=== PATIENT | male | born 1950 | race Caucasian/White ===

== ENCOUNTER 2018-05-13 08:38 | Emergency (ER) | payer MEDICARE, BC ==
[2018-05-13 08:52] VITALS: BP 181/93
--- NOTE | 2018-05-13 10:25 | UC ---
Shoulder Pain HPI - HPI Summary HPI Summary: 67 y/o male presents to the urgent care c/o Rt shoulder pain s/p falling on ice about 6 days ago. pt reports he has been able to move his shoulder, however pain is worse at night time when he is sleeping on his RT shoulder. Pain is 6/ 10 w/o any radiation, bruising or swelling. At rest pain is better 2/10. He has been taking Ibuprofen PO 400mg to alleviate symptoms w/o any improvement. Pt denies numbness or tingling sensation over the RT extremity, SOB, chest pain , SHIN, dizziness, abdominal pain, N/v/D. He states his BP is probably very elevated since he couldn't sleep well last night. - History of Current Complaint Chief Complaint: UCUpperExtremity Stated Complaint: SHOULDER INJURY Time Seen by Provider: 05/13/18 09:16 Hx Obtained From: Patient Onset/Duration: Sudden Onset, Lasting Days - 6 days, Still Present, Worse Since - 2 days Timing: Constant Severity Initially: Mild Severity Currently: Moderate Location Of Pain: Is Discrete @ - RT shoulder Pain Intensity: 6 Pain Scale Used: 0-10 Numeric Character: Sharp Aggravating Factor(s): Movement, External Rotation, Abduction Alleviating Factor(s): Rest, OTC Meds - Ibuprofen 400mg PO Associated Signs And Symptoms: Positive: Negative. Negative: Swelling, Redness , Fever, Weakness, Numbness/Tingling Related History: Dominant Hand Right - Risk Factors Non-Orthopedic Risk Factor: Negative DVT Risk Factors: Negative Septic Arthritis Risk Factor: Negative - Allergies/Home Medications Allergies/Adverse Reactions: Allergies Allergy/AdvReac Type Severity Reaction Status Date / Time No Known Allergies Allergy Verified 05/13/18 08:53 Home Medications: Home Medications Lisdexamfetamine Dimesylate [Vyvanse] 40 mg PO DAILY WITH MEAL 05/13/18 [ History Confirmed 05/13/18] PMH/Surg Hx/FS Hx/Imm Hx Previously Healthy: Yes Endocrine History: Diabetes Cardiovascular History: Hypertension Other History Of: Negative For: HIV, Hepatitis B, Hepatitis C, Anticoagulant Therapy - Surgical History Surgical History: Yes Surgery Procedure, Year, and Place: tonsilectomy, umbilical cyst - Family History Known Family History: Positive: Cardiac Disease, Hypertension Negative: Renal Disease - Social History Occupation: Employed Full-time Lives: With Family Alcohol Use: Rare Substance Use Type: None Smoking Status (MU): Never Smoked Tobacco Review of Systems All Other Systems Reviewed And Are Negative: Yes Constitutional: Positive: Negative Skin: Positive: Negative Eyes: Positive: Negative ENT: Positive: Negative Respiratory: Positive: Negative Cardiovascular: Positive: Negative Gastrointestinal: Positive: Negative Genitourinary: Positive: Negative Motor: Positive: Negative Neurovascular: Positive: Negative Musculoskeletal: Positive: Decreased ROM - RT shoulder, Other: - RT shoulder pain s/p fall Neurological: Positive: Negative Psychological: Positive: Negative Is Patient Immunocompromised?: No Physical Exam - Summary Physical Exam Summary: Vital Signs Reviewed: Yes GENERAL: Well-Appearing, No Pain Distress, Well-Nourished male w/o any apparent pain distress Eyes: Positive: Conjunctiva Clear - PERRL,EOMI ENT: Positive: Normal ENT inspection, Hearing grossly normal, Pharyngeal erythema - mild, Nasal drainage - clear, Uvula midline Neck: Positive: Supple, Nontender, No Lymphadenopathy Respiratory: Positive: Chest non-tender, Lungs clear, Normal breath sounds, No respiratory distress Cardiovascular: Positive: RRR, No Murmur, Pulses Normal, Brisk Capillary Refill Abdomen Description: Positive: Nontender, No Organomegaly, Soft. Negative: CVA Tenderness (R), CVA Tenderness (L) Bowel Sounds: Positive: Present Musculoskeletal: RT shoulder: The Rt shoulder is with/without obvious asymmetry or deformity when compared to the L shoulder. posterior shoulder w/ ecchymosis and bruising, no crepitus. No bony deformity or prominence of humeral head. No erythema, warmth. No Point Tenderness to palpation over the clavicle, or scapula. positive tenderness over Acromioclavicular joint and humeral head with mild swelling, NT to palpation of the bicipital groove . NT to palpation of the muscles of the sternocleidomastoid, pectoralis, biceps/triceps , deltoid, trapezius, . Limited ROM due to pain especially in adduction and abduction.on both passive and active, internal/external rotation, flexion/ extension. "empty can and drop arm test unable to perform due to pain. No axillary tenderness or lymphadenopathy. Normal sensation over the deltoid and fingers. Distal motor and neurovascular status is intact. Neurological Exam: Normal Psychological Exam: Normal Skin Exam: Normal Triage Information Reviewed: Yes Vital Signs: Initial Vital Signs Temp 97.5 F 12/18/18 08:48 Pulse 57 05/13/18 08:48 Resp 18 05/13/18 08:48 BP 181/93 05/13/18 08:48 Pulse Ox 100 05/13/18 08:48 Shoulder Course/Dx - Course Course Of Treatment: 67 y/o male presents to the urgent care c/o Rt shoulder pain s/p falling on ice about 6 days ago. pt reports he has been able to move his shoulder, however pain is worse at night time when he is sleeping on his RT shoulder. Pain is 6/10 w/o any radiation, bruising or swelling. At rest pain is better 2/10. He has been taking Ibuprofen PO 400mg to alleviate symptoms w/o any improvement. Pt denies numbness or tingling sensation over the RT extremity , SOB, chest pain, SHIN, dizziness, abdominal pain, N/v/D. He states his BP is probably very elevated since he couldn't sleep well last night. Hx obtained. RT shoulder X-ray ordered: Impression: AC arthritis observed. No acute osseous injury observed. Pt's Rx Naproxen PO to alleviate symptoms. Shoulder immobilized with a shoulder sling for 3-4 days. Advised to f/u with Orthopedic referral from Sports Medicine in 1 week if not improvement of symptoms.Pt's BP is elevated today advised to decrease salt in diet, monitor BP and f/u with PCP for further management. Pt strongly advised to take his BP medication and if he develops SHIN, dizziness or chest pain to immidiately go to the ER for further management. D/c instructions explained. Pt understood and agreed w/ plan of care. - Differential Dx/Diagnosis Differential Diagnosis/HQI/PQRI: AC Separation, Arthritis, Contusion, Fracture ( Closed), Rotator Cuff Injury, Sprain, Strain, Tendonitis Provider Diagnosis: Sprain of right shoulder, Osteoarthritis of right acromioclavicular joint, Uncontrolled hypertension Discharge - Sign-Out/Discharge Documenting (check all that apply): Patient Departure - d/c home All imaging exams completed and their final reports reviewed: Yes - Discharge Plan Condition: Stable Disposition: HOME Prescriptions: Naproxen TAB* [Naprosyn 250 mg TAB*] 250 mg PO Q8H PRN #30 tab PRN Reason: shoulder pain Patient Education Materials: Osteoarthritis (ED), Shoulder Sprain (ED), Low- Sodium Diet (ED) Forms: *Work Release Referrals: Kieran Cosme MD [Primary Care Provider] - 1 Week [facility] [Provider Group] - 1 Week Additional Instructions: 1-Please take medications as directed to alleviate pain and swelling. 2-Please apply ice, keep your shoulder immobilized with the shoulder sling for 3-4 days and then resume movement slowly 3- Please f/u with Orthopedic From Sports Medicine or your PCP in 1 week is not improvement of symptoms for further evaluation and treatment. 4- Your BP is elevated today. please decrease salt in your diet, monitor BP and if it continues to be elevated please f/u with your PCP for further management, If you develop SHIN, dizziness, SOB, palpitation or chest pain please go immediately to the ER for further evaluation and treatment - Billing Disposition and Condition Condition: STABLE Disposition: Home
== END 2018-05-13 10:35 | disposition home or self-care (01) ==
LOC: UCEAST 08:38
DX: S43.401A Unspecified sprain of right shoulder joint, initial encounter (principal); M19.011 Primary osteoarthritis, right shoulder; I10 Essential (primary) hypertension; E11.9 Type 2 diabetes mellitus without complications; W00.9XXA Unspecified fall due to ice and snow, initial encounter; Y92.9 Unspecified place or not applicable
CPT/HCPCS: 99213; G0463